=== PATIENT | male | born 1980 | race Caucasian/White ===

== ENCOUNTER 2017-05-19 01:44 | Emergency (ER) | payer SELFPAY ==
[2017-05-19 01:49] VITALS: BP 168/112; RESP 18; TEMP 98.2
--- NOTE | 2017-05-19 01:57 | EDPHY ---
H & P Stated Complaint: [facility] SENT FOR MEDS HPI/ROS: HPI CHIEF COMPLAINT: Alcohol withdrawal HISTORY OF PRESENT ILLNESS: Patient very pleasant 37-year-old male no medical history does not take any daily medications he presents emergency room with alcohol draw. Presents from the [facility] for medications. He states his last drink was 24 hours ago he typically drinks 750 mL is of vodka per day. Denies drug use. Denies being homeless. Is employed. States he just feels shaky. He denies chest pain shortness of breath headache nausea vomiting. He would like Librium. Past Medical History: Alcoholism Past Surgical History: No recent surgery Social History: Daily alcohol use last drink 24 hours ago Family History: Noncontributory ROS REVIEW OF SYSTEMS: A comprehensive 10 point review of systems is otherwise negative aside from elements mentioned in the history of present illness. Exam Constitutional appears well nontoxic triage nursing summary reviewed, vital signs reviewed, awake/alert. Eyes normal conjunctivae and sclera, EOMI, PERRLA. HENT normal inspection, atraumatic, moist mucus membranes, no epistaxis, neck supple/ no meningismus, no raccoon eyes. Respiratory clear to auscultation bilaterally, normal breath sounds, no respiratory distress, no wheezing. Cardiovascular rate normal, regular rhythm, no murmur, no edema, distal pulses normal. Gastrointestinal soft, non-tender, no rebound, no guarding, normal bowel sounds, no distension, no pulsatile mass. Genitourinary no CVA tenderness. Musculoskeletal no midline vertebral tenderness, full range of motion, no calf swelling, no tenderness of extremities, no meningismus, good pulses, neurovascularly intact. Skin pink, warm, & dry, no rash, skin atraumatic. Neurologic slight tremors. awake, alert and oriented x 3, AAOx3, moves all 4 extremities equally, motor intact, sensory intact, CN II-XII intact, normal cerebellar, normal vision, normal speech. Psychiatric normal mood/affect. Heme/Lymph/Immune no lymphadenopathy. Differential Diagnosis: Includes but is not limited to in a particular order; alcohol withdrawal Medical Decision Making: Patient appears well nontoxic no evidence of DTs. Resting comfortably. Not loosen eating. calm and cooperative. Re-evaluation: Plan for this patient p.o. in 25 mg and Librium take-home pack to the [facility]. Source: Patient - Personal History Current Tetanus/Diphtheria Vaccine: Unsure Current Tetanus Diphtheria and Acellular Pertussis (TDAP): Unsure Tetanus Vaccine Date: <10 years - Medical/Surgical History Hx Asthma: No Hx Chronic Respiratory Disease: No Hx Diabetes: No Hx Cardiac Disease: Yes Hx Renal Disease: No Hx Cirrhosis: No Hx Alcoholism: No Hx HIV/AIDS: No Hx Splenectomy or Spleen Trauma: No Other PMH: hypertension. ETOH WITHDRAWLS. ETOH SEIZURES - Social History Smoking Status: Former smoker Constitutional: Initial Vital Signs Temperature (C) 36.8 C 05/19/17 01:45 Heart Rate 124 H 05/19/17 01:45 Respiratory Rate 18 05/19/17 01:45 Blood Pressure 168/112 H 05/19/17 01:45 O2 Sat (%) 95 05/19/17 01:45 O2 Delivery Mode Room Air Allergies/Adverse Reactions: No Known Allergies Allergy (Unverified 08/01/13 15:51) Departure - Departure Disposition: Home, Routine, Self-Care Clinical Impression: Alcohol withdrawal Qualifiers: Complication of substance-induced condition: uncomplicated Qualified Code(s): F10.230 - Alcohol dependence with withdrawal, uncomplicated Condition: Good Instructions: Alcohol Withdrawal (ED) Referrals: NONE *PRIMARY CARE P,. [Primary Care Provider] - As per Instructions
[2017-05-19] MEDS ORDERED: chlordiazePOXIDE 25 MG CAP PO ONE (02:00)
[2017-05-19] MEDS ORDERED: CHLORDIAZEPOXIDE 25MG PREPK#6 BTL TAKEHOME ONE (02:00)
[2017-05-19 02:18] VITALS: PULSE 114; O2SAT 96
== END 2017-05-19 02:17 | disposition home or self-care (01) ==
DX: F10.230 Alcohol dependence with withdrawal, uncomplicated (principal); I10 Essential (primary) hypertension; Z87.891 Personal history of nicotine dependence